=== PATIENT | male | born 1995 | race African-American/Black ===

== ENCOUNTER 2020-08-30 01:29 | Emergency (ER) | payer OTHER ==
[~2020-08-30] VITALS: Ht 152.4 cm; Wt 78.0 kg
[2020-08-30] MEDS ORDERED: T3 PO (02:00)
[2020-08-30] MEDS ORDERED: KETOROLAC 30MG/ML VIAL IM ONE (02:00)
[2020-08-30 02:41] VITALS: BP 129/81
== END 2020-08-30 02:42 | disposition home or self-care (01) ==
LOC: ER 01:29
DX: M54.2 Cervicalgia (principal); M25.511 Pain in right shoulder
CPT/HCPCS: 96372; 99283; J1885; Z7610